=== PATIENT | female | born 1975 | race Two or more races ===

== ENCOUNTER 2016-10-28 11:09 | Emergency (ER) | payer MEDICAID ==
[~2016-10-28] VITALS: Ht 165.1 cm; Wt 94.3 kg
[2016-10-28 11:30] VITALS: BP 127/79
== END 2016-10-28 12:57 | disposition left against medical advice (07) ==
LOC: ER 11:10
DX: M54.9 Dorsalgia, unspecified (principal); Z53.21 Procedure and treatment not carried out due to patient leaving prior to being seen by health care provider; X50.9XXA Other and unspecified overexertion or strenuous movements or postures, initial encounter; Y93.89 Activity, other specified; Y92.89 Other specified places as the place of occurrence of the external cause; Y99.8 Other external cause status